=== PATIENT | male | born 1960 | race Caucasian/White ===

== ENCOUNTER 2017-08-23 19:55 | Inpatient (IN) | payer OTHER ==
[~2017-08-23] VITALS: Ht 175.3 cm; Wt 74.8 kg
[~2017-08-23 19:55] MED LIST: ALBUTEROL0.09 MG/A3 IH; ATROVENT H0.017 MG/1 NEB; CYCLOBENZAPRINE5 MG PO; CYMBALTA30 M1 PO; LAC PO; LEVAQUIN750 MG PO; MEDDP PO; PRE20 PO; PROVENTIL0.09 MG/A1 INH; PULMICORT0.25 MG/2 IH; PULMICORT0.5 MG/2 M IH; SEREVENT D0.046 MG/1 IH; ZITHROMAX Z-PA250 M2 PO; ZITHROMAX250 MG PO
[2017-08-23 21:42] LABS: CALCIUM 8.7 mg/dL (8.5-10.1); CARBON DIOXIDE 31.6 mmol/L (21-32); CHLORIDE SERUM 103 mmol/L (98-107); CREATININE SERUM 0.9 mg/dL (0.7-1.3); GFR1 > 60 mL/min; GLUCOSE SERUM 102 mg/dL (74-106); POTASSIUM SERUM 3.6 mmol/L (3.5-5.1); SODIUM SERUM 140 mmol/L (136-145)
[2017-08-23 21:45] LABS: BASOPHIL % 0.7 % (0-2); RED CELL DISTRIBUTION WIDTH 14.4 % (11.5-14.5)
[2017-08-23 21:48] LABS: PLATELET COUNT 438 x10^3mcL (130-400)
[2017-08-24 03:45] VITALS: BP 129/89
[2017-08-24 04:16] LABS: T3 TOTAL 1.37 ng/mL
[2017-08-24 04:24] LABS: MAGNESIUM 2.2 mg/dL (1.8-2.4); PHOSPHOROUS 5.3 mg/dL (2.5-4.9)
[2017-08-24 04:25] LABS: CHOLESTEROL/HDL RATIO 4.3
[2017-08-24 04:34] LABS: UA SPECIFIC GRAVITY >=1.030 (1.005-1.035); microscopic required? YES; urine erythrocyte NEGATIVE (NEGATIVE)
[2017-08-24 04:46] LABS: FREE T4 1.19 ng/dL (0.76-1.46); FREE THYROXINE INDEX 3.6 ug/dL (1.4-4.5); T4(THYROXINE) 11.2 ug/dL (4.7-13.3)
[2017-08-24 04:50] LABS: AMPHETAMINE QUAL UR POSITIVE (NEG <=1000)
[2017-08-24 05:51] VITALS: BP 132/81
[2017-08-24 08:51] VITALS: BP 122/74
[2017-08-24 08:58] LABS: RED CELL DISTRIBUTION WIDTH 14.4 % (11.5-14.5)
[2017-08-24 09:00] LABS: BASOPHIL % 0 % (0-2); PLATELET COUNT 431 x10^3mcL (130-400)
[2017-08-24 09:08] LABS: CARBON DIOXIDE 29.9 mmol/L (21-32); CHLORIDE SERUM 102 mmol/L (98-107); CREATININE SERUM 0.9 mg/dL (0.7-1.3); GFR1 > 60 mL/min; GLUCOSE SERUM 146 mg/dL (74-106); MAGNESIUM 1.9 mg/dL (1.8-2.4); SODIUM SERUM 138 mmol/L (136-145)
[2017-08-24 12:54] VITALS: BP 108/71
[2017-08-24 17:02] VITALS: BP 111/73
[2017-08-24 21:46] VITALS: BP 114/85
[2017-08-25 05:09] VITALS: BP 127/69
[2017-08-25 06:42] LABS: CALCIUM 8.9 mg/dL (8.5-10.1); CARBON DIOXIDE 29.1 mmol/L (21-32); CHLORIDE SERUM 103 mmol/L (98-107); CREATININE SERUM 0.8 mg/dL (0.7-1.3); GFR1 > 60 mL/min; GLUCOSE SERUM 115 mg/dL (74-106); MAGNESIUM 2.4 mg/dL (1.8-2.4); PHOSPHOROUS 4.1 mg/dL (2.5-4.9); POTASSIUM SERUM 4.8 mmol/L (3.5-5.1); SODIUM SERUM 137 mmol/L (136-145)
[2017-08-25 07:45] LABS: PLATELET COUNT 352 x10^3mcL (130-400)
[2017-08-25 07:52] LABS: RED CELL DISTRIBUTION WIDTH 14.8 % (11.5-14.5)
[2017-08-25 08:45] VITALS: BP 104/69
[2017-08-25 10:28] LABS: BAND NEUTROPHIL 2 % (0-10); BASOPHIL 0 % (0-2); MONOCYTE 2 % (0-7); SEGMENTED NEUTROPHILS 93 % (37-75)
[2017-08-25 10:29] LABS: rbc morphology (normal/abnorm) ABNORMAL (NORMAL)
[2017-08-25 13:16] VITALS: BP 112/65
[2017-08-25 16:15] VITALS: BP 112/65
[2017-08-25 22:02] VITALS: BP 115/69
[2017-08-26 05:53] VITALS: BP 132/93
[2017-08-26 06:19] LABS: PLATELET COUNT 395 x10^3mcL (130-400); RED CELL DISTRIBUTION WIDTH 14.2 % (11.5-14.5)
[2017-08-26 06:38] LABS: CALCIUM 8.7 mg/dL (8.5-10.1); CARBON DIOXIDE 30.4 mmol/L (21-32); CHLORIDE SERUM 101 mmol/L (98-107); GFR1 > 60 mL/min; GLUCOSE SERUM 115 mg/dL (74-106); POTASSIUM SERUM 4.6 mmol/L (3.5-5.1); SODIUM SERUM 137 mmol/L (136-145)
[2017-08-26 06:39] LABS: ALBUMIN 2.7 g/dL (3.4-5.0)
[2017-08-26 09:39] LABS: BAND NEUTROPHIL 0 % (0-10); BASOPHIL 0 % (0-2); MONOCYTE 8 % (0-7); SEGMENTED NEUTROPHILS 83 % (37-75)
[2017-08-26 09:40] LABS: PLATELET MORPHOLOGY PLATELETS INCREASED; rbc morphology (normal/abnorm) NORMAL (NORMAL)
[2017-08-26 09:43] VITALS: BP 114/64
[2017-08-26 13:53] VITALS: BP 120/76
[2017-08-26 17:11] VITALS: BP 116/72
[2017-08-26 21:17] VITALS: BP 122/82
[2017-08-27 02:39] VITALS: BP 120/86
[2017-08-27 06:01] LABS: BASOPHIL % 0.2 % (0-2); PLATELET COUNT 376 x10^3mcL (130-400); RED CELL DISTRIBUTION WIDTH 14.3 % (11.5-14.5)
[2017-08-27 06:04] VITALS: BP 123/90
[2017-08-27 06:18] LABS: CALCIUM 8.7 mg/dL (8.5-10.1); CARBON DIOXIDE 32.2 mmol/L (21-32); CHLORIDE SERUM 101 mmol/L (98-107); CREATININE SERUM 0.9 mg/dL (0.7-1.3); GFR1 > 60 mL/min; GLUCOSE SERUM 89 mg/dL (74-106); SODIUM SERUM 139 mmol/L (136-145)
[2017-08-27 09:27] VITALS: BP 118/75
[2017-08-27 12:38] VITALS: BP 121/75
[2017-08-27] MEDS ORDERED: CLA10 PO (15:50)
[2017-08-27] MEDS ORDERED: IPRATROPIUM BROM3 M2 HHN (15:54)
[2017-08-27 15:56] VITALS: BP 121/75
[2017-08-27 16:52] VITALS: BP 121/75
== END 2017-08-27 18:08 | disposition home or self-care (01) | DRG 133 ==
LOC: ED 19:55 → DU 08-24 00:55
PROVIDERS: Emergency Medicine; Family Medicine; ADMIT Family Medicine
DX: J96.01 Acute respiratory failure with hypoxia (principal); N17.0 Acute kidney failure with tubular necrosis; G92 Toxic encephalopathy; E43 Unspecified severe protein-calorie malnutrition; J45.901 Unspecified asthma with (acute) exacerbation; J44.9 Chronic obstructive pulmonary disease, unspecified; E83.39 Other disorders of phosphorus metabolism; E11.9 Type 2 diabetes mellitus without complications; F15.10 Other stimulant abuse, uncomplicated; F32.9 Major depressive disorder, single episode, unspecified; E78.5 Hyperlipidemia, unspecified; Z68.23 Body mass index [BMI] 23.0-23.9, adult; D64.9 Anemia, unspecified
CPT/HCPCS: 36600; 82962; 83880; 84439; 85378; 90658; 94150; J1956; J2920; J2930; J3490; J7030; J7050; J7620; J7633; Q0092

== ENCOUNTER 2019-07-26 21:17 | Inpatient (IN) | payer MEDICAID ==
[~2019-07-26] VITALS: Ht 175.3 cm; Wt 73.2 kg
[~2019-07-26 21:17] MED LIST changes: +CLA10 PO; +IPRATROPIUM BROM3 M2 HHN
[2019-07-26 21:24] VITALS: Ht 175.3 cm; Wt 73.2 kg
[2019-07-26 22:21] LABS: BASOPHIL % 0.3 % (0-2); PLATELET COUNT 359 x10^3mcL (130-400); RED CELL DISTRIBUTION WIDTH 14.4 % (11.5-14.5)
[2019-07-26 22:30] LABS: CALCIUM 8.3 mg/dL (8.5-10.1); CARBON DIOXIDE 33.9 mmol/L (21-32); CHLORIDE SERUM 100 mmol/L (98-107); GFR1 > 60 mL/min; GLUCOSE SERUM 114 mg/dL (74-106); POTASSIUM SERUM 4.1 mmol/L (3.5-5.1); SODIUM SERUM 139 mmol/L (136-145)
[2019-07-26 22:42] LABS: ALKALINE PHOSPHATASE 118 U/L (46-116); ALT/SGPT 198 U/L (16-63); AST/SGOT 79 U/L (15-37); BILIRUBIN TOTAL 0.29 mg/dL (0.20-1.00); HDL CHOLESTEROL 38 mg/dL (40-60); LIPASE 66 IU/L (73-393); TOTAL PROTEIN, SERUM 7.3 g/dL (6.4-8.2)
[2019-07-26 22:59] LABS: CHOLESTEROL 129 mg/dL (<200); T4(THYROXINE) 14.2 ug/dL (4.7-13.3)
[2019-07-26 23:34] LABS: microscopic required? NO
[2019-07-26 23:55] LABS: UA SPECIFIC GRAVITY >=1.030 (1.005-1.035); urine erythrocyte NEGATIVE (NEGATIVE)
[2019-07-27] VITALS (7 sets, daily range): BP systolic 125–157; BP diastolic 70–93
[2019-07-27 00:09] LABS: AMPHETAMINE QUAL UR POSITIVE (See below)
[2019-07-27 06:32] LABS: PLATELET COUNT 366 x10^3mcL (130-400); RED CELL DISTRIBUTION WIDTH 14.5 % (11.5-14.5)
[2019-07-27 06:45] LABS: BASOPHIL % 0 % (0-2)
[2019-07-27 06:54] LABS: CALCIUM 8.9 mg/dL (8.5-10.1); CARBON DIOXIDE 31.6 mmol/L (21-32); CHLORIDE SERUM 103 mmol/L (98-107); GFR1 > 60 mL/min; GLUCOSE SERUM 149 mg/dL (74-106); SODIUM SERUM 139 mmol/L (136-145)
[2019-07-27 11:09] LABS: CALCIUM 8.5 mg/dL (8.5-10.1); CARBON DIOXIDE 30.8 mmol/L (21-32); CHLORIDE SERUM 101 mmol/L (98-107); CREATININE SERUM 1.1 mg/dL (0.7-1.3); GFR1 > 60 mL/min; GLUCOSE SERUM 218 mg/dL (74-106); POTASSIUM SERUM 5.4 mmol/L (3.5-5.1); SODIUM SERUM 136 mmol/L (136-145)
[2019-07-28 05:22] VITALS: BP 135/78
[2019-07-28 06:23] LABS: PLATELET COUNT 372 x10^3mcL (130-400)
[2019-07-28 07:07] LABS: ALKALINE PHOSPHATASE 103 U/L (46-116); ALT/SGPT 179 U/L (16-63); AST/SGOT 51 U/L (15-37); BILIRUBIN TOTAL 0.4 mg/dL (0.20-1.00); CALCIUM 9.4 mg/dL (8.5-10.1); CARBON DIOXIDE 32.5 mmol/L (21-32); CHLORIDE SERUM 104 mmol/L (98-107); GFR1 > 60 mL/min; GLUCOSE SERUM 115 mg/dL (74-106); POTASSIUM SERUM 5.4 mmol/L (3.5-5.1); SODIUM SERUM 140 mmol/L (136-145); TOTAL PROTEIN, SERUM 7.6 g/dL (6.4-8.2)
[2019-07-28 07:18] LABS: ALBUMIN 2.9 g/dL (3.4-5.0)
[2019-07-28 07:28] LABS: RED CELL DISTRIBUTION WIDTH 14.8 % (11.5-14.5)
[2019-07-28 09:09] LABS: SEGMENTED NEUTROPHILS 97 % (37-75)
[2019-07-28 09:17] LABS: rbc morphology (normal/abnorm) NORMAL (NORMAL)
[2019-07-28 09:21] VITALS: BP 148/91
[2019-07-28 12:48] VITALS: BP 142/89
[2019-07-28 17:46] VITALS: BP 133/84
[2019-07-28 20:50] VITALS: BP 120/77
[2019-07-29 05:55] VITALS: BP 111/76
[2019-07-29 06:31] LABS: BASOPHIL % 0.1 % (0-2); PLATELET COUNT 351 x10^3mcL (130-400)
[2019-07-29 06:39] LABS: ALKALINE PHOSPHATASE 100 U/L (46-116); ALT/SGPT 138 U/L (16-63); AST/SGOT 35 U/L (15-37); BILIRUBIN TOTAL 0.2 mg/dL (0.20-1.00); CALCIUM 8.3 mg/dL (8.5-10.1); CARBON DIOXIDE 32.7 mmol/L (21-32); CHLORIDE SERUM 104 mmol/L (98-107); GFR1 > 60 mL/min; GLUCOSE SERUM 112 mg/dL (74-106); POTASSIUM SERUM 4.7 mmol/L (3.5-5.1); SODIUM SERUM 141 mmol/L (136-145); TOTAL PROTEIN, SERUM 6.6 g/dL (6.4-8.2)
[2019-07-29 06:45] LABS: ALBUMIN 2.7 g/dL (3.4-5.0)
[2019-07-29 08:55] VITALS: BP 128/83
[2019-07-29 12:18] VITALS: BP 135/90
[2019-07-29 16:00] VITALS: BP 124/87
[2019-07-29 21:01] VITALS: BP 133/87
[2019-07-30 05:29] VITALS: BP 134/85
[2019-07-30 07:49] LABS: BASOPHIL % 0.4 % (0-2); PLATELET COUNT 377 x10^3mcL (130-400)
[2019-07-30 07:55] LABS: ALKALINE PHOSPHATASE 110 U/L (46-116); ALT/SGPT 153 U/L (16-63); AST/SGOT 45 U/L (15-37); BILIRUBIN TOTAL 0.3 mg/dL (0.20-1.00); CALCIUM 8.1 mg/dL (8.5-10.1); CARBON DIOXIDE 31.9 mmol/L (21-32); CHLORIDE SERUM 102 mmol/L (98-107); CREATININE SERUM 0.9 mg/dL (0.7-1.3); GFR1 > 60 mL/min; GLUCOSE SERUM 82 mg/dL (74-106); POTASSIUM SERUM 4.3 mmol/L (3.5-5.1); SODIUM SERUM 138 mmol/L (136-145); TOTAL PROTEIN, SERUM 6.7 g/dL (6.4-8.2)
[2019-07-30 07:56] LABS: ALBUMIN 2.7 g/dL (3.4-5.0)
[2019-07-30 08:03] LABS: RED CELL DISTRIBUTION WIDTH 15.1 % (11.5-14.5)
[2019-07-30 12:14] VITALS: BP 132/88
[2019-07-30 16:40] VITALS: BP 139/84
[2019-07-30 20:40] VITALS: BP 138/89
[2019-07-31 05:07] VITALS: BP 135/89
[2019-07-31 09:54] VITALS: BP 128/90
[2019-07-31 13:30] VITALS: BP 135/90
[2019-07-31 16:57] VITALS: BP 121/83
[2019-07-31 17:30] VITALS: BP 121/83
[2019-07-31 21:20] VITALS: BP 122/80
[2019-08-01 04:42] VITALS: BP 105/54
[2019-08-01 08:34] VITALS: BP 114/78
[2019-08-01] MEDS ORDERED: PREDNISONE20 MG PO (11:05)
[2019-08-01] MEDS ORDERED: LEVOFLOXACIN500 M1 PO (11:06)
[2019-08-01] MEDS ORDERED: ADV250/50 INH (11:06)
[2019-08-01 11:47] VITALS: BP 114/78
[2019-08-01 11:58] VITALS: BP 119/85
== END 2019-08-01 15:43 | disposition home or self-care (01) | DRG 140 ==
LOC: ED 21:17 → DU 23:51 → MU 07-28 11:30 → DU 07-28 15:54
PROVIDERS: Emergency Medicine; Internal Medicine; ADMIT General Practice
DX: J44.1 Chronic obstructive pulmonary disease with (acute) exacerbation (principal); E44.0 Moderate protein-calorie malnutrition; F11.20 Opioid dependence, uncomplicated; F15.20 Other stimulant dependence, uncomplicated; J45.901 Unspecified asthma with (acute) exacerbation; R74.0 Nonspecific elevation of levels of transaminase and lactic acid dehydrogenase [LDH]; Z79.51 Long term (current) use of inhaled steroids; Z68.25 Body mass index [BMI] 25.0-25.9, adult
CPT/HCPCS: 36600; 82962; 83880; 90658; 94150; G0378; G0480; J1956; J2405; J2920; J2930; J3475; J7030; J7512; J7613; J7620; J7626; J7633; J7644; Q0092